=== PATIENT | male | born 1990 | race Caucasian/White ===

== ENCOUNTER 2020-11-24 14:31 | Outpatient (CLI) | payer OTHER, SELFPAY ==
[2020-11-24 15:27] LABS: Basophils Absolute Auto 0.1 K/mm3 (0.0-0.1); Basophils Percent Auto 0.8 % (0.2-1.2); Eosinophils Absolute Auto 0.1 K/mm3 (0-0.3); Eosinophils Percent Auto 1.3 % (0-4.4); Hematocrit 43.7 % (42.0-52.0); Hemoglobin 15.1 g/dL (14.0-18.0); Immature Granulocyte Absolute 0.04 K/mm3 (0.00-0.031); Immature Granulocyte Percent A 0.5 % (0-0.5); Mean Corpuscular HGB Conc 34.6 g/dl (32-36); Mean Corpuscular Hemoglobin 30.9 pg (26-34); Mean Corpuscular Volume 89.5 fl (80-100); Mean Platelet Volume 10.5 fl (7.4-10.4); Monocytes Absolute Auto 0.7 K/mm3 (0.1-0.6); Monocytes Percent Auto 8.1 % (2.6-8.5); Neutrophils Absolute Auto 4.9 K/mm3 (1.3-6.7); Neutrophils Percent Auto 58.3 % (45.5-73.1); Platelet Count Result 196 k/mm3 (150-375); Red Blood Count 4.88 M/mm3 (4.6-6.20); Red Cell Distribution Width 11.9 % (11.5-14.5); White Blood Count 8.4 K/mm3 (4.5-10.0)
[2020-11-24 17:12] LABS: Alanine Aminotransferase 25 U/L (4-50); Albumin Level 4.7 g/dL (3.5-5.1); Alkaline Phosphatase 60 U/L (38-126); Anion Gap 11 mmol/L (8-16); Aspartate Amino Transferase 31 U/L (17-59); Bilirubin,Total 0.8 mg/dL (0.2-1.3); Blood Urea Nitrogen 15 mg/dL (9-20); Calcium 9.6 mg/dL (8.4-10.2); Carbon Dioxide 27 mmol/L (22-30); Chloride 102 mmol/L (98-107); Estimated Glomerular Filt Rate > 60; Glucose 94 mg/dL (65-110); Magnesium 2.1 mg/dL (1.6-2.3); Potassium 4.4 mmol/L (3.4-5.0); Sodium 140 mmol/L (137-145)
== END 2020-11-24 14:32 | disposition home or self-care (01) ==
LOC: ANHLAB 14:39
PROVIDERS: Visit Provider Internal Medicine Hematology & Oncology
DX: I82.4Y2 Acute embolism and thrombosis of unspecified deep veins of left proximal lower extremity (principal)
CPT/HCPCS: 36415; 80053; 83735; 85025

== ENCOUNTER 2020-11-26 09:14 | Outpatient (CLI) | payer OTHER, SELFPAY ==
--- NOTE | ~2020-11-26 | US_ITS ---
EXAMINATION: US venous doppler [facility] DATE: 11/26/2020 09:54 INDICATION: Left lower limb swelling, history of deep venous thrombosis TECHNIQUE: Quick scale images without and with compression and Doppler images of the left lower extrem ity veins were obtained. COMPARISON: None FINDINGS: The left common femoral vein, profunda femoral vein, and greater saphenous vein are patent. There is partial thrombosis of the femoral vein, popliteal vein, peroneal trunk, and posterior tibia l veins. IMPRESSION: 1. Partial thrombosis of the femoral vein, popliteal vein, peroneal trunk, and posterior tibial veins . These findings were communicated to the office of Dr. Darius Alvarez MD at 1354 hours on 11/26/2020. Reviewed, dictated and finalized at location A. IMPRESSION: 1. Partial thrombosis of the femoral vein, popliteal vein, peroneal trunk, and posterior tibial veins. These findings were communicated to the office of Dr. Darius Alvarez MD at 135 4 hours on 11/26/2020.
== END 2020-11-26 09:15 | disposition home or self-care (01) ==
LOC: ANHIMG 09:22
PROVIDERS: PCP Physician Assistant; Visit Provider Internal Medicine Hematology & Oncology
DX: I82.412 Acute embolism and thrombosis of left femoral vein (principal); I82.432 Acute embolism and thrombosis of left popliteal vein; I82.442 Acute embolism and thrombosis of left tibial vein
CPT/HCPCS: 93971

== ENCOUNTER 2022-06-25 13:52 | Outpatient (CLI) | payer OTHER, SELFPAY ==
--- NOTE | ~2022-06-25 | US_ITS ---
EXAMINATION: US venous doppler [facility] DATE: 06/25/2022 15:23 INDICATION: Right lower limb acute deep vein thrombosis. TECHNIQUE: Grayscale ultrasound images without and with compression and Doppler ultrasound images of the right lower extremity veins were obtained. COMPARISON: None. FINDINGS: The visualized portions of right common femoral vein, profunda (deep) femoral vein, femoral vein, pop liteal vein, peroneal veins, posterior tibial veins, and greater saphenous vein outflow are patent. IMPRESSION: 1. No deep venous thrombosis. Reviewed, dictated and finalized at location A. [employer]
== END 2022-06-25 13:53 | disposition home or self-care (01) ==
PROVIDERS: PCP Family Medicine; Visit Provider Internal Medicine Hematology & Oncology
DX: I82.4Y2 Acute embolism and thrombosis of unspecified deep veins of left proximal lower extremity (principal)
CPT/HCPCS: 93971

== ENCOUNTER 2022-07-07 08:31 | Outpatient (CLI) | payer OTHER, SELFPAY ==
--- NOTE | ~2022-07-07 | US_ITS ---
EXAMINATION: US scrotum doppler DATE: 07/07/2022 09:18 INDICATION: Retractile testis. TECHNIQUE: Grayscale and Doppler ultrasound images of the testes were obtained. COMPARISON: None. FINDINGS: The right testis measures 4.6 x 2.7 x 3.9 cm. The left testis measures 4.6 x 2.6 x 3.4 cm. There is normal vascular flow to both testes. The right epididymis is not visualized. The left epidid ymis is normal with normal vascular flow. There is no varicocele or hydrocele. IMPRESSION: 1. Normal testes. Reviewed, dictated and finalized at location A. IMPRESSION: 1. Normal testes.
== END 2022-07-07 08:32 | disposition home or self-care (01) ==
LOC: ANHIMG 08:33
PROVIDERS: PCP Family Medicine; Visit Provider Family Medicine
DX: Q55.22 Retractile testis (principal)
CPT/HCPCS: 76870; 93976

== ENCOUNTER 2022-08-03 11:20 | Outpatient (CLI) | payer OTHER, SELFPAY ==
[2022-08-03 18:39] LABS: Hematocrit 43.4 % (42.0-52.0); Hemoglobin 14.7 g/dL (14.0-18.0); Mean Corpuscular HGB Conc 33.9 g/dl (32-36); Mean Corpuscular Hemoglobin 30.2 pg (26-34); Mean Corpuscular Volume 89.3 fl (80-100); Platelet Count Result 180 k/mm3 (150-375); Red Blood Count 4.86 M/mm3 (4.6-6.20); Red Cell Distribution Width 12.6 % (11.5-14.5); White Blood Count 7.7 K/mm3 (4.5-10.0)
[2022-08-03 18:40] LABS: Alanine Aminotransferase 35 U/L (6-50); Albumin Level 4.4 g/dL (3.5-5.1); Alkaline Phosphatase 58 U/L (38-126); Anion Gap 7 mmol/L (8-16); Aspartate Amino Transferase 40 U/L (17-59); Bilirubin,Total 0.7 mg/dL (0.2-1.3); Blood Urea Nitrogen 15 mg/dL (9-20); Calcium 8.6 mg/dL (8.4-10.2); Carbon Dioxide 29 mmol/L (22-30); Chloride 99 mmol/L (98-107); Cholesterol 190 mg/dL (0-200); Estimated Glomerular Filt Rate > 60; Glucose 104 mg/dL (65-110); HDL Direct 42 mg/dL; Potassium 3.8 mmol/L (3.4-5.0); Sodium 135 mmol/L (137-145); Triglycerides 152 mg/dL (<150)
[2022-08-03 18:54] LABS: LDL Cholesterol Direct 117 mg/dL
== END 2022-08-03 11:21 | disposition home or self-care (01) ==
LOC: ANHBWCLAB 11:21
PROVIDERS: PCP Family Medicine; Visit Provider Family Medicine
DX: Z00.00 Encounter for general adult medical examination without abnormal findings (principal)
CPT/HCPCS: 36415; 80053; 80061; 85027

== ENCOUNTER 2024-09-27 14:34 | Outpatient (CLI) | payer OTHER, SELFPAY ==
--- NOTE | ~2024-09-27 | US_ITS ---
Right lower quadrant ultrasound HISTORY: Pain TECHNIQUE: Sonographic imaging performed at the right lower quadrant area of pain. FINDINGS: No mass lesion or fluid collection seen. No sonographic abnormality seen in the right lower quadrant area of pain. No hernia evident. IMPRESSION: No significant abnormality seen in the region scanned. Reviewed, dictated and finalized at [facility].
--- NOTE | ~2024-09-27 | US_ITS ---
Ultrasound of the right groin CLINICAL HISTORY: Right lower quadrant pain, hernia TECHNIQUE: Sonographic imaging of the right inguinal region was performed. FINDINGS: No mass lesion or fluid collection seen. No hernia identified. No significant abnormality s een in the region scanned. IMPRESSION: No right inguinal hernia seen. No sonographic abnormality seen. Reviewed, dictated and finalized at [facility].
== END 2024-09-27 14:35 | disposition home or self-care (01) ==
LOC: MICIMG 14:34
PROVIDERS: PCP Family Medicine; Visit Provider Nurse Practitioner Family
DX: K40.90 Unilateral inguinal hernia, without obstruction or gangrene, not specified as recurrent (principal); K46.9 Unspecified abdominal hernia without obstruction or gangrene
CPT/HCPCS: 76705; 76882